=== PATIENT | female | born 1940 ===

== ENCOUNTER 2022-01-03 18:47 | Inpatient (IN) | payer MEDICARE, BC ==
[~2022-01-03] VITALS: Ht 157.5 cm; Wt 102.2 kg
[2022-01-03] MEDS ORDERED: ONDANSETRON 4 MG/2 ML VIAL IV ONE (19:00)
--- NOTE | 2022-01-03 19:05 | NUR ---
PATIENT SEEN BY DR. MEJIAS.
[2022-01-03] MEDS ORDERED: ONDANSETRON 4 MG/2 ML VIAL ONE (19:06)
[2022-01-03 19:23] LABS: ABG BASE EXCESS 0.1 mmol/L; ABG HCO3 25.6 mmol/L; ABG PCO2 45.7 mmHg (35.0-45.0); ABG PH 7.366 (7.350-7.450); ABG PO2 99.5 mmHg (75.0-100.0); ABG SITE LEFT RADIAL; ABG TOTAL HEMOGLOBIN 9.2 G/dL (12.0-16.0); COHb 3.9 % (0.5-1.5); MetHb 0.3 % (0.0-1.5); O2Hb 92.6 % (94.0-97.0); VENT MODE Nasal Cannula
--- NOTE | 2022-01-03 19:29 | NUR ---
EKG DONE AND READ BY DR. MEJIAS. LABS DRAWN AT SAME TIME.
--- NOTE | 2022-01-03 19:30 | NUR ---
PATIENT ABDOMEN DISTENDED
[2022-01-03 19:36] LABS: HEMATOCRIT 29.8 % (31.2-41.9); MEAN CORPUSCULAR HEMOGLOBIN 28.6 uug (24.7-32.8); MEAN CORPUSCULAR VOLUME 89.5 fL (75.5-95.3); PLATELET COUNT (AUTO) 165 K/uL (179-408)
[2022-01-03 20:20] LABS: CARBON DIOXIDE 30 mmol/L (21-32); CHLORIDE 99 mmol/L (98-107); CREATININE 1.7 mg/dL (0.6-1.3); POTASSIUM 4.1 mmol/L (3.5-5.1); UREA NITROGEN, BLOOD 27 mg/dL (7-18)
[2022-01-03 20:26] LABS: GLUCOSE 340 mg/dL (74-106)
[2022-01-03 20:32] LABS: ALANINE AMINOTRANSFERASE 14 U/L (14-59); ALKALINE PHOSPHATASE 97 U/L (50-136); ASPARTATE AMINOTRANSFERASE < 5 U/L (15-37); BILIRUBIN,DIRECT < 0.1 mg/dL (0.0-0.2); BILIRUBIN,TOTAL 0.4 mg/dL (0.2-1.0)
[2022-01-03] MEDS ORDERED: POTASSIUM CHLORIDE 20 MEQ TAB.PRT.SR ONE (20:43)
[2022-01-03] MEDS ORDERED: POTASSIUM CHLORIDE 20 MEQ TAB.PRT.SR PO ONE (20:45)
[2022-01-03] MEDS ORDERED: INSULIN REGULAR, HUMAN 300 UNIT/3 ML VIAL IV ONE (20:45)
[2022-01-03] MEDS ORDERED: INSULIN REGULAR, HUMAN 300 UNIT/3 ML VIAL ONE (20:45)
[2022-01-03] MEDS ORDERED: IV NS 1000 ML 1,000 ML IV ONE (20:45)
[2022-01-03] MEDS ORDERED: SWABABLE VALVE TRANSFER SET EA MC ONE (21:19)
[2022-01-03] MEDS ORDERED: IOHEXOL 350 100 ML INFUS..BTL ONE (21:21)
[2022-01-03] MEDS ORDERED: CLOP75TA33 PO (21:33)
[2022-01-03] MEDS ORDERED: PHEN-894 PO (21:33)
[2022-01-03] MEDS ORDERED: ERGO400C PO (21:33)
[2022-01-03] MEDS ORDERED: POLY17PO4 PO (21:33)
[2022-01-03] MEDS ORDERED: BUPR-53 PO (21:33)
[2022-01-03] MEDS ORDERED: ESTR10TA VG (21:33)
[2022-01-03] MEDS ORDERED: ESCI-9 PO (21:33)
[2022-01-03] MEDS ORDERED: LACT-291 PO (21:33)
[2022-01-03] MEDS ORDERED: ACET-73 PO (21:33)
[2022-01-03] MEDS ORDERED: BISA10SU95 RC (21:33)
[2022-01-03] MEDS ORDERED: AMLO-212 PO (21:33)
[2022-01-03] MEDS ORDERED: CLON0.2T PO (21:33)
[2022-01-03] MEDS ORDERED: ASCO500C18 PO (21:33)
[2022-01-03] MEDS ORDERED: ALBU6.7H9 IH (21:33)
[2022-01-03] MEDS ORDERED: SENN-18 PO (21:33)
[2022-01-03] MEDS ORDERED: CRAN250C PO (21:33)
[2022-01-03] MEDS ORDERED: FOLI1TAB94 PO (21:33)
[2022-01-03] MEDS ORDERED: BACL10TA PO (21:33)
[2022-01-03] MEDS ORDERED: VITA-287 PO (21:33)
[2022-01-03] MEDS ORDERED: GABA-532 PO (21:33)
[2022-01-03] MEDS ORDERED: POLY15DR67 EACHEYE (21:33)
[2022-01-03] MEDS ORDERED: FURO40TA5 PO (21:33)
[2022-01-03] MEDS ORDERED: SITA1TAB6 PO (21:33)
[2022-01-03] MEDS ORDERED: TRAZ-257 PO (21:33)
[2022-01-03] MEDS ORDERED: LABE200T5 PO (21:33)
[2022-01-03] MEDS ORDERED: NPH,100V2 SUBCUT ×2 (21:33)
[2022-01-03] MEDS ORDERED: ATOR40TA PO (21:33)
--- NOTE | 2022-01-03 21:39 | NUR ---
PATIENT TAKEN DOWN TO CTA
[2022-01-03] MEDS ORDERED: FUROSEMIDE 20 MG/2 ML VIAL ONE (22:21)
[2022-01-03] MEDS ORDERED: levoFLOXacin 500 MG/D5W 100 ML ONE (22:29)
[2022-01-03] MEDS ORDERED: FUROSEMIDE 20 MG/2 ML VIAL IV ONE (22:30)
[2022-01-03] MEDS ORDERED: levoFLOXacin 500 MG/D5W 100ML PIGGYBACK IV ONE (22:30)
--- NOTE | 2022-01-03 23:23 | NUR ---
DR. MEJIAS SPOKE TO DR. AYALA FOR ADMISSION. PATIENT ACCEPTED [facility] BE TELE WITH DIAGNOSIS PNA.
--- NOTE | 2022-01-03 23:51 | NUR ---
Report given to Shira. patient will be going to Room 321.
[2022-01-04 00:20] VITALS: BP 126/48
--- NOTE | 2022-01-04 00:20 | NUR ---
Admitted a 81 years old female with Dx of Pneumonia, Resp failure and Hyperglycemia. Patient AAOx3-4. In no acute distress. SOB on exertion only. On O2 at 3LPM via NC in place. O2 sat at 94% at this time. Complain of mild headache but tolerable at this time per patient. IV site on right hand intact and patent. SR with 1st degree AV block on tele with HR of 63/min. +2 Pitting edema noted on BLE. Routine admission care done. Plan of care initiated. Safety measure initiated and call light within reached. Continue to monitor.
[2022-01-04] MEDS ORDERED: INSULIN REGULAR, HUMAN 300 UNITS/3 ML VIAL SQ PRN (01:00)
[2022-01-04] MEDS ORDERED: ALBUTEROL SULFATE 2.5 MG/ 0.5 ML NEBU NEB PRN (01:00)
[2022-01-04] MEDS ORDERED: ACETAMINOPHEN 325 MG TABLET PO PRN (01:00)
[2022-01-04] MEDS ORDERED: ONDANSETRON 4 MG/2 ML VIAL IV PRN (01:00)
[2022-01-04] MEDS ORDERED: DEXTROSE 50% 50 ML DISP.SYRIN IV PRN (01:00)
[2022-01-04] MEDS ORDERED: PIPERACILLIN/TAZO 2.25 G in IV DEXTROSE 5% 50 ML IV SCH (01:00)
--- NOTE | 2022-01-04 02:00 | NUR ---
Telephone call to PERFECTO Hong and informed that Dr. Nuñez ordered Zosyn but patient is allergic to Amoxicillin. SEAMLESS TUBE DRAWER Hal with order to discontinue Zosyn and change to Cefepime. Order noted and will carry out.
[2022-01-04] MEDS: IV 1/2NS 1000 ML 1,000 ML IV PRN (02:08)
[2022-01-04] MEDS ORDERED: CEFEPIME HCL 1 G in IV DEXTROSE 5% 50 ML IV SCH ×2 (02:14→09:00)
[2022-01-04 04:00] VITALS: BP 155/57
[2022-01-04] MEDS: PANTOPRAZOLE SODIUM 40 MG TABLET.DR PO SCH (06:07)
--- NOTE | 2022-01-04 06:22 | NUR ---
In no acute distress. O2 at 3LPM via NC. O2 sat at 95%. Noted with occasional productive cough and able to expectorate phlegm. NSR on tele with 1st degree AV block. Needs attended to and met. Safety measure maintained and call light within reached.
[2022-01-04] MEDS: BLOOD SUGAR DIAGNOSTIC 1 EACH STRIP VI SCH ×4 (06:33→21:18)
[2022-01-04 06:45] LABS: HEMATOCRIT 28.3 % (31.2-41.9); MEAN CORPUSCULAR HEMOGLOBIN 28.5 uug (24.7-32.8); MEAN CORPUSCULAR VOLUME 88.8 fL (75.5-95.3); PLATELET COUNT (AUTO) 137 K/uL (179-408)
[2022-01-04 07:09] LABS: THYROID STIMULATING HORMONE 1.523 mIU/mL (0.358-3.740)
[2022-01-04 07:53] LABS: MAGNESIUM 1.9 mg/dL (1.8-2.4); PHOSPHOROUS 4.5 mg/dL (2.5-4.9)
[2022-01-04] MEDS: INSULIN REGULAR, HUMAN 300 UNIT/3 ML VIAL SQ PRN ×3 (09:22→17:34)
[2022-01-04] MEDS ORDERED: BISACODYL 10 MG SUPP.RECT RC PRN (09:30)
[2022-01-04] MEDS: CLOPIDOGREL 75 MG TABLET PO SCH (10:25)
[2022-01-04] MEDS: AMLODIPINE 5 MG TABLET PO SCH (10:29)
[2022-01-04 12:00] VITALS: BP 161/46
[2022-01-04] MEDS: GABAPENTIN 100 MG CAPSULE PO SCH ×2 (12:31→16:56)
[2022-01-04] MEDS: FOLIC ACID 1 MG TABLET PO SCH (12:31)
[2022-01-04] MEDS: BACLOFEN 10 MG TABLET PO SCH ×2 (13:43→21:17)
[2022-01-04] MEDS: LABETALOL HCL 200 MG TABLET PO SCH ×2 (13:50→21:18)
[2022-01-04 16:00] VITALS: BP 142/54
[2022-01-04] MEDS: SENNOSIDES 1 TABLET PO SCH (16:56)
[2022-01-04] MEDS: CEFEPIME HCL 2 G in IV DEXTROSE 5% 100 ML IV SCH (17:34)
[2022-01-04] MEDS: ACETAMINOPHEN 325 MG TABLET PO PRN (18:17)
[2022-01-04 20:00] VITALS: BP 161/57
[2022-01-04] MEDS ORDERED: INSULIN NPH 1,000 UNITS/10 ML VIAL SQ SCH (21:00)
[2022-01-04] MEDS: TRAZODONE 100 MG TABLET PO SCH (21:19)
[2022-01-04] MEDS: ESCITALOPRAM OXALATE 10 MG TABLET PO SCH (21:19)
[2022-01-04] MEDS: INSULIN NPH 1,000 UNITS/10 ML VIAL SQ SCH (21:20)
[2022-01-05] VITALS: BP 125/41
[2022-01-05] MEDS: CEFEPIME HCL 2 G in IV DEXTROSE 5% 100 ML IV SCH ×2 (05:25→17:13)
[2022-01-05 05:26] VITALS: BP 128/62
[2022-01-05] MEDS: BACLOFEN 10 MG TABLET PO SCH ×3 (06:50→22:03)
[2022-01-05] MEDS: BLOOD SUGAR DIAGNOSTIC 1 EACH STRIP VI SCH ×4 (06:51→22:00)
[2022-01-05] MEDS: LABETALOL HCL 200 MG TABLET PO SCH ×3 (06:51→22:04)
[2022-01-05] MEDS: PANTOPRAZOLE SODIUM 40 MG TABLET.DR PO SCH (06:51)
[2022-01-05 07:16] LABS: HEMATOCRIT 26.9 % (31.2-41.9); MEAN CORPUSCULAR HEMOGLOBIN 31.7 uug (24.7-32.8); PLATELET COUNT (AUTO) 218 K/uL (179-408)
[2022-01-05 07:48] LABS: BILIRUBIN,TOTAL 0.2 mg/dL (0.2-1.0); CREATININE 1.3 mg/dL (0.6-1.3); MAGNESIUM 2.1 mg/dL (1.8-2.4); PHOSPHOROUS 4.1 mg/dL (2.5-4.9); POTASSIUM 4.5 mmol/L (3.5-5.1); TOTAL PROTEIN, SERUM 6.5 g/dL (6.4-8.2)
[2022-01-05] MEDS ORDERED: INSULIN NPH 1,000 UNITS/10 ML VIAL SQ SCH (09:00)
[2022-01-05] MEDS: SENNOSIDES 1 TABLET PO SCH ×2 (09:04→17:13)
[2022-01-05] MEDS: buPROPion XL 150 MG TAB.SR.24H PO SCH (09:04)
[2022-01-05] MEDS: CLOPIDOGREL 75 MG TABLET PO SCH (09:04)
[2022-01-05] MEDS: GABAPENTIN 100 MG CAPSULE PO SCH ×3 (09:04→17:13)
[2022-01-05] MEDS: CULTURELLE CAPSULE PO SCH (09:04)
[2022-01-05] MEDS: FOLIC ACID 1 MG TABLET PO SCH (09:04)
[2022-01-05] MEDS: AMLODIPINE 5 MG TABLET PO SCH (09:05)
[2022-01-05] MEDS: INSULIN NPH 1,000 UNITS/10 ML VIAL SQ SCH ×2 (09:16→22:08)
[2022-01-05 09:46] VITALS: BP 148/56
[2022-01-05] MEDS: IV 1/2NS 1000 ML 1,000 ML IV PRN (11:30)
[2022-01-05 12:00] VITALS: BP 146/53
[2022-01-05] MEDS: INSULIN REGULAR, HUMAN 300 UNIT/3 ML VIAL SQ PRN ×2 (12:16→16:24)
[2022-01-05] MEDS: ACETAMINOPHEN 325 MG TABLET PO PRN (15:53)
[2022-01-05 16:00] VITALS: BP 190/55
[2022-01-05] MEDS ORDERED: hydrALAZINE HCL 25 MG TABLET PO PRN (16:30)
--- NOTE | 2022-01-05 17:15 | NUR ---
Pt BP elevated SBP > 190, notified MD, obtained order for PRN hydralazine and administered. pt complaining of back pain, comfort measures provided, administered tylenol.
--- NOTE | 2022-01-05 19:35 | NUR ---
Patient alert oriented, no sob no chest pain, on oxygen 3 liters sat wnl, with episode of cough, non productive, able to expectorate whitish secretions, cont abx for PNA, with episode of elevated BP MD aware, with order, cont to monitor.
[2022-01-05] MEDS: ESCITALOPRAM OXALATE 10 MG TABLET PO SCH (20:52)
[2022-01-05] MEDS: TRAZODONE 100 MG TABLET PO SCH (20:52)
[2022-01-05 21:41] VITALS: BP 180/72
[2022-01-05] MEDS: CLONIDINE HCL 0.2 MG TABLET PO SCH (22:03)
[2022-01-06 00:44] VITALS: BP 142/42
[2022-01-06] MEDS: AMLODIPINE 10 MG TABLET PO SCH ×2 (00:44→09:00)
[2022-01-06] MEDS: IV 1/2NS 1000 ML 1,000 ML IV PRN (02:40)
[2022-01-06 04:20] VITALS: BP 168/57
[2022-01-06] MEDS: CEFEPIME HCL 2 G in IV DEXTROSE 5% 100 ML IV SCH ×2 (05:38→18:13)
[2022-01-06] MEDS: BACLOFEN 10 MG TABLET PO SCH ×2 (05:38→13:30)
[2022-01-06] MEDS: CLONIDINE HCL 0.2 MG TABLET PO SCH ×2 (05:39→13:32)
[2022-01-06] MEDS: LABETALOL HCL 200 MG TABLET PO SCH ×2 (05:40→13:35)
[2022-01-06] MEDS: BLOOD SUGAR DIAGNOSTIC 1 EACH STRIP VI SCH ×3 (05:51→16:48)
[2022-01-06] MEDS: PANTOPRAZOLE SODIUM 40 MG TABLET.DR PO SCH (05:51)
[2022-01-06 06:54] LABS: MEAN CORPUSCULAR HEMOGLOBIN 29.4 uug (24.7-32.8); MEAN CORPUSCULAR VOLUME 89.2 fL (75.5-95.3); PLATELET COUNT (AUTO) 143 K/uL (179-408)
[2022-01-06 07:10] LABS: CREATININE 1.2 mg/dL (0.6-1.3); PHOSPHOROUS 3.7 mg/dL (2.5-4.9); POTASSIUM 4.5 mmol/L (3.5-5.1)
[2022-01-06] MEDS: CLOPIDOGREL 75 MG TABLET PO SCH (10:26)
[2022-01-06] MEDS: SENNOSIDES 1 TABLET PO SCH ×2 (10:26→16:45)
[2022-01-06] MEDS: FOLIC ACID 1 MG TABLET PO SCH (10:26)
[2022-01-06] MEDS: CULTURELLE CAPSULE PO SCH (10:26)
[2022-01-06] MEDS: GABAPENTIN 100 MG CAPSULE PO SCH ×3 (10:26→16:45)
[2022-01-06] MEDS: ACETAMINOPHEN 325 MG TABLET PO PRN (10:26)
[2022-01-06] MEDS: buPROPion XL 150 MG TAB.SR.24H PO SCH (10:26)
[2022-01-06] MEDS: INSULIN NPH 1,000 UNITS/10 ML VIAL SQ SCH (10:28)
[2022-01-06] MEDS: INSULIN REGULAR, HUMAN 300 UNIT/3 ML VIAL SQ PRN ×3 (10:31→16:53)
[2022-01-06 11:54] VITALS: BP 153/53
[2022-01-06] MEDS ORDERED: PROTEIN SUPPLEMENT (PROSTAT) 30 ML LIQUID PO SCH (12:00)
[2022-01-06] MEDS ORDERED: GLUCERNA SHAKE 237 ML CAN PO SCH (12:00)
[2022-01-06 16:03] VITALS: BP 154/49
--- NOTE | 2022-01-06 16:17 | NUR ---
Pt is a/o x 4, daughter at bedside, titrated to 2L NC saturating 94%. Plan is to discharge patient to [facility] for continued care.
[2022-01-06] MEDS ORDERED: LABETALOL HCL 100 MG TABLET PO ONE (17:30)
[2022-01-06] MEDS ORDERED: FURO-151 PO (17:31)
[2022-01-06] MEDS ORDERED: PROT30LI PO (17:31)
[2022-01-06] MEDS ORDERED: CLON0.2T PO (17:31)
[2022-01-06] MEDS ORDERED: LABE100T5 PO (17:31)
[2022-01-06] MEDS ORDERED: Blood Sugar Diagnostic VI (17:31)
[2022-01-06] MEDS ORDERED: SITA50TA PO (17:31)
[2022-01-06] MEDS ORDERED: AMLO10TA59 PO (17:31)
[2022-01-06] MEDS ORDERED: CEFE2VIA3 IV (17:31)
[2022-01-06] MEDS ORDERED: INSU100V28 SQ ×2 (17:32)
[2022-01-06] MEDS ORDERED: DEXT50DI8 IV (17:32)
[2022-01-06] MEDS ORDERED: PANT40TA49 PO (17:32)
[2022-01-06 18:30] VITALS: BP 147/52
--- NOTE | 2022-01-06 18:44 | NUR ---
PT WILL BE TRANSFERRED TO [facility] FOR CONTINUED CARE. [employer] SCHEDULED FOR 1929.
--- NOTE | 2022-01-06 19:10 | NUR ---
Called and gave report to Nidhi YO at [facility] . Pt accepted to room 219A. All personal belongings signed for, discharge education provided. IV in place for continued IV therapy at facility. No signs of acute distress. cook pickled meat will be for 1929.
== END 2022-01-06 19:55 | disposition short-term general hospital (02) | DRG 871 ==
LOC: ER 18:55 → TELE3 22:00 → MEDSURG3 01-05 09:26
PROVIDERS: ADMIT Internal Medicine; ATTEND Internal Medicine
DX: A41.9 Sepsis, unspecified organism (principal); G92.8 Other toxic encephalopathy; J69.0 Pneumonitis due to inhalation of food and vomit; N17.0 Acute kidney failure with tubular necrosis; I50.31 Acute diastolic (congestive) heart failure; J96.21 Acute and chronic respiratory failure with hypoxia; D68.59 Other primary thrombophilia; Z68.41 Body mass index [BMI] 40.0-44.9, adult; D50.9 Iron deficiency anemia, unspecified; E11.65 Type 2 diabetes mellitus with hyperglycemia; E78.5 Hyperlipidemia, unspecified; I11.0 Hypertensive heart disease with heart failure; I25.10 Atherosclerotic heart disease of native coronary artery without angina pectoris; Z20.822 Contact with and (suspected) exposure to COVID-19; Z87.01 Personal history of pneumonia (recurrent); Z88.2 Allergy status to sulfonamides; Z74.09 Other reduced mobility; F32.9 Major depressive disorder, single episode, unspecified; F41.9 Anxiety disorder, unspecified; M48.00 Spinal stenosis, site unspecified; D63.8 Anemia in other chronic diseases classified elsewhere; Z79.4 Long term (current) use of insulin; E66.01 Morbid (severe) obesity due to excess calories
CPT/HCPCS: 36415; 36600; 71045; 71275; 83550; 83605; 83735; 84100; 84443; 84484; 85025; 85610; 85730; 86803; 87040; 87400; 87806; 93005; 93307; 94640; A4663; G0378; J0692; J1815; J1940; J1956; J2405; J7040; Q9967